=== PATIENT | male | born 1945 | race African-American/Black ===

== ENCOUNTER 2022-10-03 08:34 | Inpatient (IN) | payer MEDICARE ==
[~2022-10-03] VITALS: Ht 177.8 cm; Wt 85.8 kg
[~2022-10-03 08:34] MED LIST: ALBU6.7H15 INH; AMLO10TA80 PO; APIX5TAB PO; CYAN100096 MT; DOCU-150 MT; FLUT1AER INH; LEVO75TA7 PO; LORA10TA7 MT; MECL-159 MT; MONT-46 MT; POTA8CAP20 MT; PROT20 PO
[2022-10-03 10:47] LABS: BASOPHILS % 0.2 % (0.0-2.0); EOSINOPHILS % 0.3 % (0.0-5.0); HEMATOCRIT. 24.7 % (42.0-52.0); HEMOGLOBIN. 7.5 g/dL (14.0-18.0); LYMPHOCYTES % 11.2 % (20.0-50.0); MEAN CORPUSCULAR HEMOGLOBIN 20.5 pg (28.0-32.0); MEAN CORPUSCULAR HGB CONC 30.5 g/dL (31.0-37.0); MEAN CORPUSCULAR VOLUME 67.1 fL (80.0-94.0); MEAN PLATELET VOLUME 7.6 fl (7.4-10.4); MONOCYTES % 6.3 % (2.0-8.0); PLATELET 282 x1000/uL (130-400); RED BLOOD CELL COUNT 3.67 mill/uL (4.7-6.1); RED CELL DISTRIBUTION WIDTH 18.2 % (11.6-14.6)
[2022-10-03 10:48] LABS: DIFFERENTIAL COMMENT 1
[2022-10-03 10:49] LABS: ADD RBC MORPHOLOGY YES
[2022-10-03 10:59] LABS: CHLORIDE 106 mEq/L (98-107); INDEX HEMOLYSI 1 (1-3); INDEX ICTERIC 1 (1-4); INDEX LIPEMIC 1 (1-3); POTASSIUM 4.5 mEq/L (3.5-5.1); SODIUM 137 mEq/L (136-145)
[2022-10-03 11:11] LABS: ALANINE AMINOTRANSFERASE 23 IU/L (13-61); ALBUMIN 3.3 g/dL (3.4-5.0); ASPARTATE AMINOTRANSFERASE 13 IU/L (15-37); CALCIUM 8.8 mg/dL (8.5-10.1); CARBON DIOXIDE 24 mEq/L (21-32); CREATININE 2.3 mg/dL (0.6-1.3); GLUCOSE 107 mg/dL (70-105); NT PRO B-TYPE NATRIURETIC PEP 984 pg/mL (5-125); PROTEIN TOTAL 6.8 g/dL (6.0-8.3); TROPONIN I HIGH SENSITIVITY 16 ng/L (<78); UREA NITROGEN BLOOD 72 mg/dL (7-21)
[2022-10-03 13:31] LABS: CLARITY URINE CLEAR (CLEAR); COLOR URINE YELLOW (YELLOW); GLUCOSE URINE NEGATIVE (NEGATIVE); KETONES URINE NEGATIVE (NEGATIVE); LEUKOCYTE ESTERASE URINE NEGATIVE (NEGATIVE); NITRITE URINE NEGATIVE (NEGATIVE); OCCULT BLOOD URINE NEGATIVE (NEGATIVE); PH URINE 5.5 (4.5-8.0); PROTEIN URINE NEGATIVE (NEGATIVE); SPECIFIC GRAVITY URINE 1.016 (1.005-1.030); UROBILINOGEN URINE 0.2 E.U./dL (0.2-1.0)
[2022-10-03 16:00] VITALS: BP 112/63; PULSE 72; RESP 16; TEMP 97.8
[2022-10-03] MEDS ORDERED: ONDANSETRON HCL 4MG/2ML INJ IV PRN (16:00)
[2022-10-03] MEDS ORDERED: IPRATROPIUM/ALBUTEROL 0.5-3(2.5)MG/3ML NEB HHN PRN (16:00)
[2022-10-03] MEDS ORDERED: DOCUSATE SODIUM 100MG CAPSULE PO PRN (16:00)
[2022-10-03] MEDS ORDERED: ACETAMINOPHEN 325MG TABLET PO PRN ×2 (16:00)
[2022-10-03 16:20] LABS: ANISOCYTOSIS 2+; HYPOCHROMASIA 1+; MICROCYTOSIS 3+; PLATELET ESTIMATE NORMAL
[2022-10-03] MEDS: SODIUM CHLORIDE 0.9% 1,000 ML IV SCH (16:45)
[2022-10-03] MEDS ORDERED: PANTOPRAZOLE SODIUM 40 MG/VIAL IV SCH (16:45)
[2022-10-03] MEDS ORDERED: NA PHOS,M-B/NA PHOS,DI-BA ENEMA 118ML PR NR (18:00)
[2022-10-03] MEDS ORDERED: SORBITOL 70% SOLN 30ML PO NR ×2 (18:15→21:45)
[2022-10-03 18:44] LABS: HEMATOCRIT 24.4 % (42.0-52.0); HEMOGLOBIN 7.4 g/dL (14.0-18.0)
[2022-10-03 19:00] LABS: INDEX HEMOLYSI 1 (1-3); INDEX ICTERIC 1 (1-4); INDEX LIPEMIC 1 (1-3)
[2022-10-03 19:19] LABS: FOLIC ACID (FOLATE) SERUM 4.4 ng/mL (>5.38)
[2022-10-03 19:20] LABS: IRON 22 ug/dL (50-175); TOTAL IRON BINDING CAPACITY 465 ug/dL (250-450)
[2022-10-03 19:24] LABS: CARCINO EMBRYONIC ANTIGEN 1.6 ng/ml
[2022-10-03 19:26] LABS: VITAMIN B12 SERUM 242 pg/mL (211-911)
[2022-10-03 19:31] LABS: FERRITIN < 5 ng/mL (22-322)
[2022-10-03 20:00] VITALS: BP 115/70; PULSE 74; RESP 18; TEMP 97.5
[2022-10-03 20:38] LABS: *AMPHETAMINES SCREEN URINE NEGATIVE (NEGATIVE); *BARBITURATES SCREEN URINE NEGATIVE (NEGATIVE); *BENZODIAZEPINES SCREEN URINE NEGATIVE (NEGATIVE); *COCAINE SCREEN URINE NEGATIVE (NEGATIVE); CANNABINOID URINE SCREEN NEGATIVE (NEGATIVE); ECSTASY MDMA SCREEN URINE NEGATIVE (NEGATIVE); METHADONE URINE SCREEN NEGATIVE (NEGATIVE); OPIATES URINE SCREEN NEGATIVE (NEGATIVE); PHENCYCLIDINE URINE SCREEN NEGATIVE (NEGATIVE)
[2022-10-03 22:56] LABS: CREATINE KINASE MB FRACTION 1.7 ng/mL (0.5-3.6)
[2022-10-03 23:36] LABS: HEPATITIS B SURFACE ANTIGEN NEGATIVE
[2022-10-04] VITALS (9 sets, daily range): BP systolic 99–121; BP diastolic 51–63; PULSE 66–86; RESP 12–19; TEMP 97–99
[2022-10-04 00:04] LABS: HEPATITIS C VIR.AB 0.14 INDEXVAL (0.00-0.80)
[2022-10-04 00:42] LABS: HEMATOCRIT 26.6 % (42.0-52.0); HEMOGLOBIN 7.9 g/dL (14.0-18.0)
[2022-10-04] MEDS: PANTOPRAZOLE SODIUM 40 MG/VIAL IV SCH ×2 (04:27→17:19)
[2022-10-04 06:38] LABS: INR 1.1; PROTHROMBIN TIME 11.9 sec (9.6-11.0)
[2022-10-04 06:45] LABS: BASOPHILS % 0.3 % (0.0-2.0); EOSINOPHILS % 0.1 % (0.0-5.0); HEMATOCRIT. 23.8 % (42.0-52.0); HEMOGLOBIN. 7.3 g/dL (14.0-18.0); LYMPHOCYTES % 16.2 % (20.0-50.0); MEAN CORPUSCULAR HEMOGLOBIN 20.5 pg (28.0-32.0); MEAN CORPUSCULAR HGB CONC 30.8 g/dL (31.0-37.0); MEAN CORPUSCULAR VOLUME 66.6 fL (80.0-94.0); MEAN PLATELET VOLUME 8.1 fl (7.4-10.4); MONOCYTES % 6.8 % (2.0-8.0); NEUTROPHILS % 76.6 % (40.0-76.0); PLATELET 286 x1000/uL (130-400); RED BLOOD CELL COUNT 3.57 mill/uL (4.7-6.1); RED CELL DISTRIBUTION WIDTH 18.6 % (11.6-14.6)
[2022-10-04 06:52] LABS: DIFFERENTIAL COMMENT 1
[2022-10-04 08:08] LABS: CALCIUM 8.4 mg/dL (8.5-10.1); CREATININE 2.1 mg/dL (0.6-1.3); POTASSIUM 4.6 mEq/L (3.5-5.1)
[2022-10-04 08:15] LABS: CREATINE KINASE MB FRACTION 1.6 ng/mL (0.5-3.6); THYROID STIMULATING HORMONE 0.89 uIU/mL (0.36-3.74)
[2022-10-04] MEDS ORDERED: PROPOFOL 200MG/20ML VIAL IV ONE ×2 (10:44→11:40)
[2022-10-04] MEDS ORDERED: MIDAZOLAM HCL 2 MG/2 ML VIAL ONE ×2 (10:44)
[2022-10-04] MEDS ORDERED: LIDOCAINE HCL 1% 10 MG/ML 10ML VIAL ONE (10:44)
[2022-10-04] MEDS ORDERED: SIMETHICONE 40 MG/0.6 ML 15ML ONE (11:03)
[2022-10-04] MEDS: SUCRALFATE 1 G/10 ML UDC PO SCH ×3 (14:12→21:02)
[2022-10-04] MEDS: SODIUM CHLORIDE 0.9% 1,000 ML IV SCH (14:25)
[2022-10-04 19:48] LABS: HEMOGLOBIN 8.5 g/dL (14.0-18.0)
[2022-10-04] MEDS ORDERED: SPIR50TA5 PO (22:33)
[2022-10-04] MEDS ORDERED: FURO40TA5 PO (22:33)
[2022-10-05] VITALS: BP 128/48; PULSE 68; RESP 20; TEMP 97
[2022-10-05 04:30] VITALS: BP 95/49; PULSE 66; RESP 18; TEMP 98.9
[2022-10-05] MEDS: SUCRALFATE 1 G/10 ML UDC PO SCH ×4 (06:18→21:00)
[2022-10-05] MEDS: PANTOPRAZOLE SODIUM 40 MG/VIAL IV SCH ×2 (06:18→17:03)
[2022-10-05 07:24] LABS: BASOPHILS % 0.2 % (0.0-2.0); EOSINOPHILS % 0.6 % (0.0-5.0); HEMATOCRIT. 24.4 % (42.0-52.0); HEMOGLOBIN. 7.5 g/dL (14.0-18.0); LYMPHOCYTES % 7.3 % (20.0-50.0); MEAN CORPUSCULAR HEMOGLOBIN 21.9 pg (28.0-32.0); MEAN CORPUSCULAR HGB CONC 30.6 g/dL (31.0-37.0); MEAN CORPUSCULAR VOLUME 71.4 fL (80.0-94.0); MEAN PLATELET VOLUME 8.1 fl (7.4-10.4); MONOCYTES % 6.3 % (2.0-8.0); NEUTROPHILS % 85.6 % (40.0-76.0); PLATELET 242 x1000/uL (130-400); RED BLOOD CELL COUNT 3.42 mill/uL (4.7-6.1); RED CELL DISTRIBUTION WIDTH 22.5 % (11.6-14.6); WHITE BLOOD COUNT 11.5 x1000/uL (4.5-11.0)
[2022-10-05 07:27] LABS: POTASSIUM 4.4 mEq/L (3.5-5.1)
[2022-10-05 07:28] LABS: CALCIUM 8.3 mg/dL (8.5-10.1)
[2022-10-05 07:30] LABS: DIFFERENTIAL COMMENT 1
[2022-10-05 07:34] LABS: CREATININE 1.8 mg/dL (0.6-1.3)
[2022-10-05 08:01] VITALS: BP 95/46; PULSE 62; RESP 18; TEMP 97.3
[2022-10-05] MEDS: SODIUM CHLORIDE 0.9% 1,000 ML IV SCH ×2 (09:23→22:48)
[2022-10-05] MEDS ORDERED: SODIUM CHLORIDE 0.9% 250 ML IV SCH (11:00)
[2022-10-05 12:28] VITALS: BP 104/59; PULSE 68; RESP 20; TEMP 97.8
[2022-10-05 16:00] VITALS: BP 99/58; PULSE 68; RESP 20; TEMP 97.5
[2022-10-05] MEDS: IRON SUCROSE COMPLEX 100 MG/5 ML ML IV SCH (17:03)
[2022-10-05] MEDS: FOLIC ACID 1MG TABLET PO SCH (17:04)
[2022-10-05] MEDS: CYANOCOBALAMIN 1000MCG/ML VIAL SUBCUT SCH (17:04)
[2022-10-05] MEDS: SORBITOL 70% SOLN 30ML PO SCH ×2 (17:05→20:00)
[2022-10-05 20:00] VITALS: BP 116/67; PULSE 72; RESP 18; TEMP 97.4
[2022-10-06] VITALS (8 sets, daily range): BP systolic 92–114; BP diastolic 37–74; PULSE 64–86; RESP 16–18; TEMP 97.7–98.1
[2022-10-06] MEDS ORDERED: SORBITOL 70% SOLN 30ML PO SCH (00:15)
[2022-10-06] MEDS: SUCRALFATE 1 G/10 ML UDC PO SCH ×4 (03:43→23:47)
[2022-10-06] MEDS: PANTOPRAZOLE SODIUM 40 MG/VIAL IV SCH ×2 (04:17→18:22)
[2022-10-06 07:01] LABS: HEMATOCRIT. 28.4 % (42.0-52.0); HEMOGLOBIN. 8.8 g/dL (14.0-18.0); MEAN CORPUSCULAR HEMOGLOBIN 22.7 pg (28.0-32.0); MEAN CORPUSCULAR VOLUME 73.1 fL (80.0-94.0); MEAN PLATELET VOLUME 8.2 fl (7.4-10.4); PLATELET 232 x1000/uL (130-400); RED BLOOD CELL COUNT 3.88 mill/uL (4.7-6.1); RED CELL DISTRIBUTION WIDTH 23.2 % (11.6-14.6); WHITE BLOOD COUNT 11.5 x1000/uL (4.5-11.0)
[2022-10-06 07:08] LABS: INR 1.2; PROTHROMBIN TIME 12.4 sec (9.6-11.0)
[2022-10-06 07:27] LABS: DIFFERENTIAL COMMENT 1
[2022-10-06 08:56] LABS: CALCIUM 8.1 mg/dL (8.5-10.1); CREATININE 1.6 mg/dL (0.6-1.3); POTASSIUM 4.2 mEq/L (3.5-5.1)
[2022-10-06] MEDS: FOLIC ACID 1MG TABLET PO SCH (09:00)
[2022-10-06] MEDS: CYANOCOBALAMIN 1000MCG/ML VIAL SUBCUT SCH (09:28)
[2022-10-06] MEDS: SODIUM CHLORIDE 0.9% 1,000 ML IV SCH ×2 (14:40→23:47)
[2022-10-06] MEDS ORDERED: LIDOCAINE HCL 1% 10 MG/ML 10ML VIAL ONE (14:45)
[2022-10-06] MEDS ORDERED: PROPOFOL 200MG/20ML VIAL IV ONE (14:46)
[2022-10-06] MEDS ORDERED: SIMETHICONE 40 MG/0.6 ML 15ML ONE (14:56)
[2022-10-06 15:20] LABS: NUCLEATED RED BLOOD CELLS 1 /100 WBC
[2022-10-06 15:21] LABS: ANISOCYTOSIS 3+; HYPOCHROMASIA 1+; MICROCYTOSIS 2+; PLATELET ESTIMATE NORMAL
[2022-10-06] MEDS ORDERED: EPHEDRINE SULFATE 50MG/ML VIAL ONE (15:31)
[2022-10-06] MEDS ORDERED: ONDANSETRON HCL 4MG/2ML INJ ONE (15:31)
[2022-10-06] MEDS ORDERED: DEXAMETHASONE 4MG/ML 1ML VIAL ONE (15:31)
[2022-10-06] MEDS: IRON SUCROSE COMPLEX 100 MG/5 ML ML IV SCH (18:22)
[2022-10-07] VITALS: BP 97/50; PULSE 62; RESP 16; TEMP 97.5
[2022-10-07] MEDS ORDERED: TRAMADOL 50MG TABLET PO NR (02:45)
[2022-10-07 04:00] VITALS: BP 105/57; PULSE 57; RESP 18; TEMP 97.7
[2022-10-07 07:23] LABS: HEMATOCRIT. 24.1 % (42.0-52.0); HEMOGLOBIN. 7.7 g/dL (14.0-18.0); MEAN CORPUSCULAR HEMOGLOBIN 23.1 pg (28.0-32.0); MEAN CORPUSCULAR HGB CONC 31.9 g/dL (31.0-37.0); MEAN CORPUSCULAR VOLUME 72.5 fL (80.0-94.0); MEAN PLATELET VOLUME 8.1 fl (7.4-10.4); PLATELET 224 x1000/uL (130-400); RED BLOOD CELL COUNT 3.32 mill/uL (4.7-6.1); RED CELL DISTRIBUTION WIDTH 22.9 % (11.6-14.6); WHITE BLOOD COUNT 9.6 x1000/uL (4.5-11.0)
[2022-10-07 07:26] LABS: DIFFERENTIAL COMMENT 1
[2022-10-07] MEDS: PANTOPRAZOLE SODIUM 40 MG/VIAL IV SCH ×2 (07:58→17:31)
[2022-10-07] MEDS: SUCRALFATE 1 G/10 ML UDC PO SCH ×4 (07:58→21:24)
[2022-10-07 08:00] VITALS: BP 100/60; PULSE 54; RESP 18; TEMP 98.1
[2022-10-07 08:02] LABS: POTASSIUM 4.4 mEq/L (3.5-5.1)
[2022-10-07 08:09] LABS: CREATININE 1.5 mg/dL (0.6-1.3)
[2022-10-07] MEDS: FOLIC ACID 1MG TABLET PO SCH (08:36)
[2022-10-07] MEDS: CYANOCOBALAMIN 1000MCG/ML VIAL SUBCUT SCH (08:36)
[2022-10-07 11:52] LABS: ANISOCYTOSIS 3+; MICROCYTOSIS 2+; PLATELET ESTIMATE NORMAL
[2022-10-07 12:00] VITALS: BP 103/61; PULSE 67; RESP 18; TEMP 96.5
[2022-10-07] MEDS ORDERED: IRON SUCROSE COMPLEX 100 MG/5 ML ML IV SCH (15:00)
[2022-10-07] MEDS: SODIUM CHLORIDE 0.9% 1,000 ML IV SCH (15:36)
[2022-10-07 16:00] VITALS: BP 111/77; PULSE 65; RESP 18; TEMP 97.6
[2022-10-07 16:20] LABS: HEMATOCRIT 26.6 % (42.0-52.0); HEMOGLOBIN 8.1 g/dL (14.0-18.0)
[2022-10-07 20:00] VITALS: BP 107/57; PULSE 69; RESP 19; TEMP 96.8
[2022-10-08] VITALS: BP 104/55; PULSE 66; RESP 20; TEMP 97.3
[2022-10-08 04:00] VITALS: BP 100/47; PULSE 53; RESP 20; TEMP 97.3
[2022-10-08] MEDS: PANTOPRAZOLE SODIUM 40 MG/VIAL IV SCH (05:36)
[2022-10-08 08:01] VITALS: BP 109/73; PULSE 57; RESP 19; TEMP 97.2
[2022-10-08] MEDS: SUCRALFATE 1 G/10 ML UDC PO SCH ×2 (10:20→13:04)
[2022-10-08] MEDS: FOLIC ACID 1MG TABLET PO SCH (10:20)
[2022-10-08] MEDS: SODIUM CHLORIDE 0.9% 1,000 ML IV SCH (10:20)
[2022-10-08 12:00] VITALS: BP 94/51; PULSE 57; RESP 14; TEMP 97.7
[2022-10-08 13:17] VITALS: BP 94/51; PULSE 52; TEMP 97.7; O2SAT 96
== END 2022-10-08 14:45 | disposition home or self-care (01) | DRG 377 ==
LOC: ER 09:00 → 7EST 13:22 → EDBEDREQ 13:23 → EDBEDREQTM 13:23 → 7EST 14:52
PROVIDERS: ADMIT Internal Medicine; ATTEND Internal Medicine
PROC: 30233N1 Transfusion of Nonautologous Red Blood Cells into Peripheral Vein, Percutaneous Approach (ICD-10-PCS; principal; 2022-10-04)
PROC: 0DB78ZX Excision of Stomach, Pylorus, Via Natural or Artificial Opening Endoscopic, Diagnostic (ICD-10-PCS; 2022-10-04)
PROC: 0W3P8ZZ Control Bleeding in Gastrointestinal Tract, Via Natural or Artificial Opening Endoscopic (ICD-10-PCS; 2022-10-04)
PROC: 0DBN8ZZ Excision of Sigmoid Colon, Via Natural or Artificial Opening Endoscopic (ICD-10-PCS; 2022-10-06)
DX: K25.4 Chronic or unspecified gastric ulcer with hemorrhage (principal); G93.41 Metabolic encephalopathy; D62 Acute posthemorrhagic anemia; N17.9 Acute kidney failure, unspecified; I48.19 Other persistent atrial fibrillation; I13.0 Hypertensive heart and chronic kidney disease with heart failure and stage 1 through stage 4 chronic kidney disease, or unspecified chronic kidney disease; I48.92 Unspecified atrial flutter; Z20.822 Contact with and (suspected) exposure to COVID-19; K44.9 Diaphragmatic hernia without obstruction or gangrene; N18.31 Chronic kidney disease, stage 3a; N20.0 Calculus of kidney; I50.9 Heart failure, unspecified; E03.9 Hypothyroidism, unspecified; I25.10 Atherosclerotic heart disease of native coronary artery without angina pectoris; I48.91 Unspecified atrial fibrillation; K59.00 Constipation, unspecified; K64.8 Other hemorrhoids; K80.20 Calculus of gallbladder without cholecystitis without obstruction; Z79.01 Long term (current) use of anticoagulants; Z79.899 Other long term (current) drug therapy; Z85.46 Personal history of malignant neoplasm of prostate; Z87.442 Personal history of urinary calculi; Z90.79 Acquired absence of other genital organ(s); Z95.5 Presence of coronary angioplasty implant and graft
CPT/HCPCS: 36415; 71045; 74176; 74177; 76700; 80048; 80053; 80305; 81003; 82270; 82378; 82550; 82553; 82607; 82728; 82746; 83540; 83550; 83735; 83880; 84153; 84443; 84484; 85014; 85018; 85025; 85044; 85384; 86304; 86803; 86850; 86900; 86920; 87340; 87426; 88305; 88312; 88313; 93005; 93306; 99291; C9113; J1100; J2250; J2405; J2704; J3420; J3490; J7030; P9016; G0103

== ENCOUNTER 2022-10-19 06:56 | Day surgery (SDC) | payer MEDICARE ==
[~2022-10-19] VITALS: Ht 180.3 cm; Wt 81.6 kg
[~2022-10-19 06:56] MED LIST changes: -APIX5TAB PO; -CYAN100096 MT; -DOCU-150 MT; +FERR325T6 PO; +FOLI-43 PO; +FURO40TA5 PO; -LORA10TA7 MT; -MECL-159 MT; -MONT-46 MT; +PANT40TA51 PO; -POTA8CAP20 MT; +POTA8CAP20 PO; -PROT20 PO; +SPIR50TA5 PO; +SUCR1TAB PO
[2022-10-19] MEDS ORDERED: FENTANYL CITRATE/PF 50MCG/ML 2ML VIAL ONE (09:24)
[2022-10-19] MEDS ORDERED: HEPARIN 1000 UNITS/ML 10ML ONE ×2 (09:24→09:27)
[2022-10-19] MEDS ORDERED: MIDAZOLAM HCL 2 MG/2 ML VIAL ONE (09:25)
[2022-10-19] MEDS ORDERED: VERAPAMIL HCL 2.5 MG/1 ML 2ML VIAL IV ONE (09:27)
[2022-10-19] MEDS ORDERED: NITROGLYCERIN 50MG PREMIX 0 ML IV ONE (09:28)
[2022-10-19] MEDS ORDERED: NICARDIPINE HCL IV ONE (09:33)
[2022-10-19] MEDS ORDERED: ATROPINE SULFATE 1MG/10ML SYR ONE (09:54)
[2022-10-19] MEDS ORDERED: ONDANSETRON HCL 4MG/2ML INJ IV PRN (10:15)
[2022-10-19] MEDS ORDERED: ATROPINE SULFATE 1MG/10ML SYR IV PRN (10:15)
[2022-10-19] MEDS ORDERED: ACETAMINOPHEN 325MG TABLET PO PRN (10:15)
== END 2022-10-19 14:15 | disposition home or self-care (01) ==
LOC: CCL 06:56
PROVIDERS: ATTEND Specialist
DX: I42.9 Cardiomyopathy, unspecified (principal); I35.1 Nonrheumatic aortic (valve) insufficiency; I13.0 Hypertensive heart and chronic kidney disease with heart failure and stage 1 through stage 4 chronic kidney disease, or unspecified chronic kidney disease; I50.9 Heart failure, unspecified; N18.30 Chronic kidney disease, stage 3 unspecified; E03.9 Hypothyroidism, unspecified; I48.20 Chronic atrial fibrillation, unspecified; Z79.899 Other long term (current) drug therapy; Z98.890 Other specified postprocedural states
CPT/HCPCS: 93458; C1893; C1725; C1769 ×3; J3010; J1644; J2250; Z7610 ×3; C1887; J0461; J3490

== ENCOUNTER 2023-01-29 00:03 | Emergency (ER) | payer MEDICARE ==
[~2023-01-29] VITALS: Ht 177.8 cm; Wt 74.0 kg
[~2023-01-29 00:03] MED LIST changes: -ALBU6.7H15 INH; -FLUT1AER INH
[2023-01-29 00:11] VITALS: O2SAT 97
[2023-01-29 00:55] LABS: BASOPHILS % 0.8 % (0.0-2.0); EOSINOPHILS % 2.1 % (0.0-5.0); HEMATOCRIT. 45.5 % (42.0-52.0); HEMOGLOBIN. 14.8 g/dL (14.0-18.0); LYMPHOCYTES % 18.6 % (20.0-50.0); MEAN CORPUSCULAR HEMOGLOBIN 27.6 pg (28.0-32.0); MEAN CORPUSCULAR HGB CONC 32.5 g/dL (31.0-37.0); MONOCYTES % 12.1 % (2.0-8.0); NEUTROPHILS % 66.4 % (40.0-76.0); PLATELET 229 x1000/uL (130-400); RED BLOOD CELL COUNT 5.35 mill/uL (4.7-6.1); RED CELL DISTRIBUTION WIDTH 17.5 % (11.6-14.6); WHITE BLOOD COUNT 5.7 x1000/uL (4.5-11.0)
[2023-01-29] MEDS ORDERED: TRANEXAMIC ACID 1,000 MG/10 ML IV ONE (01:15)
[2023-01-29 01:38] LABS: ALANINE AMINOTRANSFERASE 15 IU/L (10-49); ALBUMIN 4.6 g/dL (3.2-4.8); ASPARTATE AMINOTRANSFERASE 19 IU/L (<34); BILIRUBIN TOTAL 1.6 mg/dL (0.1-1.0); CALCIUM 9.6 mg/dL (8.7-10.4); CARBON DIOXIDE 29 mEq/L (21-32); CHLORIDE 102 mEq/L (98-107); CREATININE 2.4 mg/dL (0.6-1.3); GLUCOSE 112 mg/dL (70-105); POTASSIUM 4.7 mEq/L (3.5-5.1); PROTEIN TOTAL 8.3 g/dL (6.0-8.3); SODIUM 140 mEq/L (136-145); UREA NITROGEN BLOOD 29 mg/dL (9-23)
[2023-01-29 02:15] LABS: INR 1.1; PARTIAL THROMBOPLASTIN TIME 35.9 sec (23.4-31.0)
[2023-01-29 03:04] VITALS: BP 109/69; PULSE 80; RESP 19; TEMP 97.8
== END 2023-01-29 03:10 | disposition home or self-care (01) ==
LOC: ER 00:03
DX: K92.89 Other specified diseases of the digestive system (principal); I11.0 Hypertensive heart disease with heart failure; I50.9 Heart failure, unspecified; Z85.9 Personal history of malignant neoplasm, unspecified
CPT/HCPCS: 36415; 80053; 85025; 86850; 86900; 99283